=== PATIENT | male | born 1960 | race Caucasian/White ===

== ENCOUNTER 2017-04-16 10:16 | Emergency (ER) | payer MEDICAID ==
[2017-04-16] MEDS ORDERED: HYDROmorphONE/DILAUDID 1 MG/ML SYR IVP ONE (10:50)
[2017-04-16 11:01] LABS: % IMMATURE GRANULYOCYTES 0.3 % (0.0-1.1); ABSOLUTE IMMATURE GRANULOCYTES 0.03 10^3/uL (0.00-0.10); ADD DIFF? NO; ADD MORPH? NO; ADD SCAN? NO; ATYPICAL LYMPHOCYTE FLAG 10 (0-99); FRAGMENT RBC FLAG 0 (0-99); HEMOGLOBIN 14.6 g/dL (13.7-17.5); LEFT SHIFT FLG 0 (0-99); LIPEMIA HEMOLYSIS FLAG 90 (0-99); MEAN CELL HEMOGLOBIN 29.7 pg (27.9-34.1); MEAN CELL VOLUME 87.6 fL (81.5-99.8); MEAN PLATELET VOLUME 9.7 fL (8.7-11.7); PLATELET CLUMPS FLAG 0 (0-99); PLATELET COUNT 323 10^3/uL (150-400); RED BLOOD CELL COUNT 4.91 10^6/uL (4.40-6.38)
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
[2017-04-16 11:11] LABS: ANION GAP 10 mEq/L (8-16); CALCIUM 9.9 mg/dL (8.5-10.4); CARBON DIOXIDE 25 mEq/l (22-31); CHLORIDE 105 mEq/L (97-110); CREATININE 0.8 mg/dL (0.7-1.3); GLOMERULAR FILTRATION RATE > 60; GLUCOSE 138 mg/dL (70-100); POTASSIUM 3.7 mEq/L (3.5-5.2); SODIUM 140 mEq/L (134-144)
[2017-04-16] MEDS ORDERED: IOPAMIDOL (ISOVUE-300) 100 ML BTL ONE (11:22)
[2017-04-16] MEDS ORDERED: KETOROLAC 30 MG/1 ML SDV IVP ONE (13:15)
[2017-04-16 14:17] VITALS: BP 146/84; PULSE 78; RESP 18; TEMP 97.5; O2SAT 98
== END 2017-04-16 14:15 | disposition home or self-care (01) ==
DX: S22.32XA Fracture of one rib, left side, initial encounter for closed fracture (principal); S16.1XXA Strain of muscle, fascia and tendon at neck level, initial encounter; S70.212A Abrasion, left hip, initial encounter; S30.811A Abrasion of abdominal wall, initial encounter; V13.4XXA Pedal cycle driver injured in collision with car, pick-up truck or van in traffic accident, initial encounter; Y92.410 Unspecified street and highway as the place of occurrence of the external cause; Y99.8 Other external cause status; Y93.55 Activity, bike riding
CPT/HCPCS: 96374; J1170; J1885; Q9967

== ENCOUNTER 2017-09-21 15:44 | Emergency (ER) | payer MEDICAID ==
[2017-09-21 15:51] VITALS: RESP 18
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
[2017-09-21 17:21] VITALS: BP 154/87; PULSE 91; TEMP 97.3; O2SAT 95
== END 2017-09-21 17:21 | disposition home or self-care (01) ==
DX: S83.92XA Sprain of unspecified site of left knee, initial encounter (principal); F17.200 Nicotine dependence, unspecified, uncomplicated; X50.9XXA Other and unspecified overexertion or strenuous movements or postures, initial encounter; Y92.89 Other specified places as the place of occurrence of the external cause; Y93.89 Activity, other specified

== ENCOUNTER 2018-05-09 14:24 | Emergency (ER) | payer MEDICAID ==
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
[2018-05-09 16:07] VITALS: BP 158/75
== END 2018-05-09 16:07 ==
LOC: EDUNIT#
DX: G40.89 Other seizures (principal); Z86.69 Personal history of other diseases of the nervous system and sense organs; F17.200 Nicotine dependence, unspecified, uncomplicated

== ENCOUNTER 2018-08-23 03:18 | Emergency (ER) | payer MEDICAID ==
[2018-08-23] MEDS ORDERED: PROPARACAINE/FLUORESCEIN SOD 5 ML OPHT.BTL OP ONE (03:37)
--- NOTE | 2018-08-23 03:46 | EDPHY ---
H & P Stated Complaint: right arm numbness and right eye vision change Time Seen by Provider: 08/23/18 03:24 HPI/ROS: HPI The patient presents with right arm pain, numbness and tingling, mild confusion and trouble with his speech. The patient noticed incidentally yesterday that he was having pain throughout his right arm when he was lifting up a bag of trash. The pain is diffuse, achy in nature, worse with any movement in his shoulder or elbow. He does have some pain in his right neck as well. He noticed numbness and tingling of his arm starting yesterday and continuing through today. He has not noticed any gloria weakness. He says he feels more confused and foggy than usual. He thinks that his speech is not right though cannot describe exactly what this means. He also complaints of blurry vision of his right eye which she describes is looking through a film. He endorses methamphetamine use. He says he does have a history of a TIA many years ago though we do not have record of this. He says he is supposed to be on a baby aspirin but does not take it. REVIEW OF SYSTEMS 10 systems were reviewed and negative with the exception of the elements mentioned in the history of present illness. PMHx: History of COPD Soc Hx: Currently employed doing maintenance and security, methamphetamine use PHYSICAL General Appearance: Alert, no distress Eyes: Pupils equal and round no pallor or injection EYE EXAM Visual Acuity: noted from Nurse's notes. Pupils: equal round and reactive to light EOMI Skin: no proptosis, no periorbital erythema or swelling, no vesicles Conjunctivae: Diffusely injected, no discharge Cornea: exam with fluoroscein shows no uptake ENT, Mouth: Mucous membranes moist Respiratory: There are no retractions, lungs are clear to auscultation Cardiovascular: Regular rate and rhythm Gastrointestinal: Abdomen is soft and non-tender, no masses, bowel sounds normal Neurological: Alert and oriented x3, cranial nerves 2-12 intact, strength is 5/ 5 in the upper extremities with no pronator drift, normal finger to nose testing Skin: Warm and dry, no rashes Musculoskeletal: Neck is supple non tender Extremities: symmetrical, full range of motion Psychiatric: Patient is oriented X 3, there is no agitation Source: Patient Exam Limitations: No limitations - Personal History Current Tetanus/Diphtheria Vaccine: Yes Current Tetanus Diphtheria and Acellular Pertussis (TDAP): Yes - Medical/Surgical History Hx Asthma: No Hx Chronic Respiratory Disease: Yes Hx Diabetes: No Hx Cardiac Disease: No Hx Renal Disease: No Hx Cirrhosis: No Hx Alcoholism: No Hx HIV/AIDS: No Hx Splenectomy or Spleen Trauma: No Other PMH: fx back, COPD - Social History Smoking Status: Current every day smoker Constitutional: Initial Vital Signs Temperature (C) 36.5 C 08/23/18 03:20 Heart Rate 101 H 08/23/18 03:20 Respiratory Rate 16 08/23/18 03:20 Blood Pressure 169/92 H 08/23/18 03:20 O2 Sat (%) 94 08/23/18 03:20 O2 Delivery Mode Room Air Allergies/Adverse Reactions: Penicillins Allergy (Verified 08/23/18 03:23) Home Medications: Medication Instructions Recorded Klonopin 08/23/18 Medical Decision Making - Diagnostics Imaging Results: CT head is unremarkable performed without contrast discussed with the radiologist customer response representative. Imaging: Discussed imaging studies w/ on call Radiologist, I viewed and interpreted images myself Differential Diagnosis: 58-year-old man with COPD presents with right arm pain and paresthesias, also blurriness of his right eye and some confusion. Here in the emergency department, he is slightly hypertensive. He has a normal neurologic exam. He has an injected right cornea. Given these neurologic symptoms, I will perform CT scan of his head. Patient says he has remote history of TIA and is supposed to be taking a baby aspirin but is non compliant with this. CT head is unremarkable. Patient continues to have normal neurologic exam. He was observed for several hours with no progression of his symptoms. He appears to have a conjunctivitis of his right eye which is likely viral given unilateral and minimal discharge. He believes that his symptoms are related to benzodiazepine withdrawal. His psychiatrist stopped his Klonopin which she had been taking for about 1 year about 1 week ago and he has noticed mild symptoms since then. He thinks he developed some right shoulder pain and then got worried and developed other symptoms. This is certainly plausible. He felt well enough to go home and I really doubt TIA at this time. I discussed treatment for his conjunctivitis. - Data Points Laboratory Results: Laboratory Results 08/23/18 03:40 08/23/18 03:40 Medications Given: Discontinued Medications Ibuprofen (Motrin) 400 mg PO EDNOW ONE Stop: 08/23/18 04:23 Last Admin: 08/23/18 04:25 Dose: 400 mg Proparacaine HCl/Fluorescein Sodium (Flucaine) 2 drops OP EDNOW ONE Stop: 08/23/18 03:38 Last Admin: 08/23/18 04:05 Dose: 2 drops Point of Care Test Results: Chemistry 08/23/18 04:29 POC Troponin I 0.00 ng/mL ng/mL (0.00-0.08) Departure - Departure Disposition: Home, Routine, Self-Care Clinical Impression: Arm paresthesia, right, Conjunctivitis Condition: Good Instructions: Conjunctivitis (ED) Additional Instructions: Please follow-up with Dr. Mccarty in the next few days if you're not feeling better. Referrals: Gloria Mccarty MD [Non Staff Provider (MD)] - As per Instructions
[2018-08-23 03:50] LABS: PLATELET COUNT 277 10^3/uL (150-400)
[2018-08-23 04:01] LABS: CREATINE KINASE 204 IU/L (0-224)
[2018-08-23] MEDS ORDERED: IBUPROFEN 200 MG TAB PO ONE (04:22)
[2018-08-23 05:08] VITALS: BP 153/92
--- NOTE | 2018-08-23 06:32 | CPEKG ---
Test Reason : OPEN Blood Pressure : / mmHG Vent. Rate : 089 BPM Atrial Rate : 089 BPM P-R Int : 147 ms QRS Dur : 102 ms QT Int : 362 ms P-R-T Axes : 072 045 047 degrees QTc Int : 441 ms Sinus rhythm Confirmed by Mercedes Parmar ([id number]) on 08/23/2018 6:31:53 AM Referred By: Confirmed By:Mercedes Parmar
== END 2018-08-23 06:04 | disposition home or self-care (01) ==
DX: R20.2 Paresthesia of skin (principal); M79.601 Pain in right arm; H10.9 Unspecified conjunctivitis; J44.9 Chronic obstructive pulmonary disease, unspecified; F17.200 Nicotine dependence, unspecified, uncomplicated
CPT/HCPCS: 84484-ER

== ENCOUNTER 2018-09-17 06:27 | Emergency (ER) | payer MEDICAID ==
--- NOTE | 2018-09-17 06:46 | EDPHY ---
H & P Stated Complaint: R sided weakness/arm/neck/chest pain x 5-6 hours. Source: Patient Exam Limitations: Intoxication - Personal History Current Tetanus Diphtheria and Acellular Pertussis (TDAP): Yes - Medical/Surgical History Hx Asthma: No Hx Chronic Respiratory Disease: Yes Hx Diabetes: No Hx Cardiac Disease: Yes Hx Renal Disease: No Hx Cirrhosis: No Hx Alcoholism: No Hx HIV/AIDS: No Hx Splenectomy or Spleen Trauma: No Other PMH: fx back, COPD, anxiety, TIA, HTN. - Family History Significant Family History: No pertinent family hx - Social History Smoking Status: Current every day smoker Alcohol Use: Heavy Drug Use: Other (methamphetamine) Time Seen by Provider: 09/17/18 06:37 HPI/ROS: 58 yo M presents c/o right sided shoulder pain and right arm "not working the way it usually does" that began 6 hours ago. Pt with hx of similar on 08/23/18 seen at [facility], and discharged with paresthesias. Review of systems as per hpi General no fever no chills no weakness HEENT no eye pain no eye discharge. No eye redness, no sore throat Respiratory pos cough, no shortness of breath Cardiac no chest pain, no peripheral edema GI no abdominal pain, no diarrhea, no constipation, no nausea, no vomiting no flank pain, no hematuria, no dysuria Musculoskeletal no myalgias, pos joint pain Heme no easy bruising, no easy bleeding Endo no polyuria, no polydipsia Skin no rashes, no pruritus Neuro no syncope, no dizziness, no headaches, pos right arm paresthesias Psych is no suicidal ideation, no homicidal ideation (Francie Roa) - Physical Exam Exam: 58 yo M alert and oriented smells of alcohol at,nc eomi, prrl neck supple, no jvd lungs cta bilat heart rapid rr (Francie Roa) Constitutional: Initial Vital Signs Temperature (C) 36.8 C 09/17/18 06:38 Heart Rate 111 H 09/17/18 06:38 Respiratory Rate 21 H 09/17/18 06:38 Blood Pressure 147/94 H 09/17/18 06:38 O2 Sat (%) 88 L 09/17/18 06:38 O2 Delivery Mode Nasal Cannula O2 (L/minute) 2 Allergies/Adverse Reactions: Penicillins Allergy (Verified 09/17/18 06:38) Home Medications: Medication Instructions Recorded Klonopin 08/23/18 Methocarbamol [Robaxin 750 mg (*)] 750 - 1,500 mg PO QID PRN #30 tab 09/17/18 methylPREDNISolone [Medrol Dose 1 each PO AD #1 ea 09/17/18 Gilberto] traMADol [Ultram 50 mg (*)] 50 - 100 mg PO Q6 PRN #20 tab 09/17/18 Medical Decision Making - Diagnostics Imaging Results: Imaging Impressions Chest X-Ray 09/17/18 07:20 Impression: 1. Elevated right hemidiaphragm of unknown chronicity. 2. Possible left basilar infiltrate. 3. Recommend a routine PA and lateral chest when the patient is clinically able. If unable, chest CT may be useful. Neck CTA 09/17/18 07:22 Impression: Normal CT angiogram of the brain. 2. CT Angiography of the Neck (With Contrast) Clinical Indications: Right arm weakness and paresthesias, stroke alert Technique: During IV administration of 85 mL of Isovue-370 intravenously, helical multidetector data acquisition was obtained from the upper thorax cephalad through the skull base. The thinly collimated data were manipulated in multiple projections on the 3D computer workstation by the radiologist. Dose reduction techniques were utilized. Findings: The common internal and external carotid arteries are widely patent. Carotid bifurcations are widely patent. There are small intramural atherosclerotic calcifications in each carotid bifurcation, neither flow- limiting based on NASCET criteria. Both vertebral arteries are widely patent. No evidence of occlusion, hemodynamically significant stenosis, dissection or ulceration. Impression: Normal. Note: All stenoses are calculated using NASCET Criteria. Final concordant results are discussed with Dr. Gilbert Frazier at 08:10 AM. General information for patients regarding this examination can be found at [email or web address]. If you have questions or comments about this report, please contact me at [phone](hospital) or [phone] (cell). ED Course/Re-evaluation: pt seen and evaluation begun for right shoulder pain with right arm paresthesias , pt states this began 6 hours ago ekg with sinus tachycardia 110, early repol NIH stroke scale 3 Discussed with [facility], since he is out of the lytic window, they recommend CTA head and neck labs drawn dimer neg troponin nml creat 1.2 glucose 88 iv one liter normal saline ordered Imp pt with right arm paresthesias, right shoulder , right sided neck pain , concerning for a cervical radiculopathy still considering the possibility of CVA Pt care turned over at shift change to Dr Frazier pending ct head and neck, lab results and final disposition. (Francie Roa) I spoke with Dr. Palacios regarding the patient's CT a neck-normal CT head also normal. Patient is noted to have significant DJD on cervical CT is from 2017 and today. On repeat exam patient has decreased light touch sensation to the distribution of the ulnar aspect of his hand corresponding to the CA region. He reports diffuse weakness in his arms I seems to flex without much difficulty. He has right lateral neck tenderness extends into the trapezius. Considering otherwise negative workup, findings of degenerative changes on neck imaging and current clinical findings on exam, I suspect this patient has a C8 radiculopathy and maybe some radiculopathy 2 adjacent levels in the neck manifesting as neck/shoulder pain with associated changes in arm sensation and strength. Suggested a course of Solu-Medrol, analgesics, muscle relaxants and follow up with Neurosurgery. (Gilbert Frazier) Differential Diagnosis: differential diagnosis considered but not limited to: CVA, subdural, epidural, cervical radiculopathy, right shoulder strain, cervical strain, pneumonia, alcohol intoxication (Francie Roa) - Data Points Laboratory Results: 09/17/18 09/17/18 09/17/18 07:08 06:53 06:53 POC Hgb 17.3 gm/dL gm/dL (13.7-17.5) POC Hct 51 % % (40-51) POC Sodium 143 mEq/L mEq/L (135-145) POC Potassium 3.6 mEq/L mEq/L (3.3-5.0) POC Chloride 105 mEq/L mEq/L (97-110) POC BUN 15 mg/dL mg/dL (7-23) POC Creatinine 1.2 mg/dL mg/dL (0.7-1.3) POC Glucose 109 mg/dL H mg/dL 88 mg/dL mg/dL (70-100) (70-100) POC Troponin I 0.01 ng/mL ng/mL (0.00-0.08) Ethyl Alcohol 09/17/18 06:44 POC Hgb POC Hct POC Sodium POC Potassium POC Chloride POC BUN POC Creatinine POC Glucose POC Troponin I Ethyl Alcohol 41 mg/dL H mg/dL (0-10) Point of Care Test Results: CBC CBC Collection Date 09/17/18 CBC Collection Time 06:44 WBC 10.6 RBC 5.6 HGB 17.6 HCT 50.1 PLT 323 Neut # 6 Neut 56.9 LYMPH # 4 LYMPH 37.8 Other WBC # 0.6 Other WBC 5.3 MCV 89.5 Chemistry 09/17/18 09/17/18 09/17/18 07:08 06:53 06:53 POC Sodium 143 mEq/L mEq/L (135-145) POC Potassium 3.6 mEq/L mEq/L (3.3-5.0) POC Chloride 105 mEq/L mEq/L (97-110) POC BUN 15 mg/dL mg/dL (7-23) POC Creatinine 1.2 mg/dL mg/dL (0.7-1.3) POC Glucose 109 mg/dL H mg/dL 88 mg/dL mg/dL (70-100) (70-100) POC Troponin I 0.01 ng/mL ng/mL (0.00-0.08) ISTAT H&H 09/17/18 07:08 POC Hgb 17.3 gm/dL gm/dL (13.7-17.5) POC Hct 51 % % (40-51) Comprehensive Metabolic Panel CMP Collection Date 09/17/18 CMP Collection Time 06:44 Sodium 142 Potassium 3.7 Chloride 108 TCO2 25 Glucose 110 BUN 13 Creatinine 1.0 Calcium 9.2 Total Protein 6.9 Albumin 3.5 Alkaline Phosphatase 105 ALT 59 AST 50 Total Bilirubin 0.6 Basic Metabolic Panel Chloride 108 Creatinine 1.0 D-Dimer D-Dimer Collection Date 09/17/18 D-Dimer Collection Time 06:44 D-Dimer (ng/ml) 317 Departure - Departure Disposition: Home, Routine, Self-Care Clinical Impression: Cervical radiculopathy at C8 Condition: Good Instructions: Cervical Radiculopathy (ED) Additional Instructions: Diagnosis: Cervical radiculopathy Plan: Take the Medrol steroid Dosepak as prescribed. Start that today. Do not take nonsteroidal anti-inflammatory such as ibuprofen while your on the Medrol Dosepak. However when you finish the Medrol Dosepak, he can start ibuprofen-600 mg per 6 hr as needed for pain Tylenol in addition for pain as needed Methocarbamol muscle relaxant in addition as needed Tramadol in addition if needed for pain that prevents sleep. No driving, alcohol or work on tramadol. Call Dr. Singh-neurosurgeon drainage follow-up appointment for recheck In addition, call Dr. Ferrari to establish primary care physician Referrals: NONE *PRIMARY CARE P,. [Primary Care Provider] - As per Instructions Eddie Singh MD [Medical Doctor] - As per Instructions Mignon Buenrostro MD [Medical Doctor] - As per Instructions
[2018-09-17] MEDS ORDERED: NS 1,000 ML IV ONE (07:14)
[2018-09-17] MEDS ORDERED: IOPAMIDOL (ISOVUE 370) 100 ML BTL IV ONE (07:32)
[2018-09-17] MEDS ORDERED: KETOROLAC 30 MG/1 ML SDV IVP ONE (08:25)
[2018-09-17 09:17] VITALS: BP 154/89
[2018-09-17 09:31] LABS: INR 0.92 (0.83-1.16); PROTIME(PATIENT) 12.6 SEC (12.0-15.0)
--- NOTE | 2018-09-21 18:37 | CPEKG ---
Test Reason : OPEN Blood Pressure : / mmHG Vent. Rate : 110 BPM Atrial Rate : 110 BPM P-R Int : 137 ms QRS Dur : 099 ms QT Int : 337 ms P-R-T Axes : 069 012 059 degrees QTc Int : 456 ms Sinus tachycardia Probable left atrial enlargement ST elevation, consider anterior injury Confirmed by Francie Roa ([id number]) on 09/21/2018 6:36:25 PM Referred By: Confirmed By:Francie Roa
== END 2018-09-17 09:25 | disposition home or self-care (01) ==
LOC: CED 06:27
DX: M54.12 Radiculopathy, cervical region (principal); F17.200 Nicotine dependence, unspecified, uncomplicated
CPT/HCPCS: 70450-PO; 70496-PO; 70498-PO; 71045-PO; 82435-PO; 82565-PO; 82947-PO; 84132-PO; 84295-PO; 84484-ER; 84520-PO; 85014-ER; 96361-ER; 96374-ER; G0480; J1885; Q9967

== ENCOUNTER 2018-10-19 21:45 | Emergency (ER) | payer MEDICAID ==
[2018-10-19 21:52] VITALS: BP 171/125
--- NOTE | 2018-10-19 21:56 | EDPHY ---
H & P Stated Complaint: Med Clear Time Seen by Provider: 10/19/18 21:55 HPI/ROS: HPI CHIEF COMPLAINT: Medical clearance for [facility]. Patient complains of right hand pain. HISTORY OF PRESENT ILLNESS: 58-year-old male, history of anxiety and PTSD, homeless, here in the emergency room under arrest, going to [facility] and is being medically cleared for [facility]. Patient presents emergency room stating that he has right hand pain. He fell yesterday and injured his right hand. Additionally he has some erythematous lesions on his arms he is concerned may be MRSA. He is here for medical clearance for [facility]. Denies any other complaints. Past Medical History: PTSD and anxiety Past Surgical History: No recent surgery Social History: Homeless, polysubstance abuse. Denies IV drug use. Family History: Noncontributory ROS REVIEW OF SYSTEMS: 10 Systems were reviewed and negative with the exception of the elements mentioned in the history of present illness. Exam Constitutional triage nursing summary reviewed, vital signs reviewed, awake/ alert. Eyes normal conjunctivae and sclera, EOMI, PERRLA. HENT normal inspection, atraumatic, moist mucus membranes, no epistaxis, neck supple/ no meningismus, no raccoon eyes. Respiratory clear to auscultation bilaterally, normal breath sounds, no respiratory distress, no wheezing. Cardiovascular rate normal, regular rhythm, no murmur, no edema, distal pulses normal. Gastrointestinal soft, non-tender, no rebound, no guarding, normal bowel sounds, no distension, no pulsatile mass. Genitourinary no CVA tenderness. Musculoskeletal right hand: Neurovascularly intact mild tender palpation over the base of the thumb dorsal aspect. Good cap refill, full function, neurovascular intact, no compartment syndrome, no obvious signs of trauma. Normal movement of his thumb and hand. Good opposition of the thumb and pinky. no midline vertebral tenderness, full range of motion, no calf swelling, no tenderness of extremities, no meningismus, good pulses, neurovascularly intact. Skin to erythematous lesions 1 on the right arm, 1 on the left arm, no fluctuance. Indurated areas. The area is approximately 2 cm x 2 cm on both arms. On the right arm is located on the bicep region. On left arm it is on the triceps region. He denies he is being IV drug use sites. No fluctuance. Neurologic awake, alert and oriented x 3, AAOx3, moves all 4 extremities equally, motor intact, sensory intact, CN II-XII intact, normal cerebellar, normal vision, normal speech. Psychiatric normal mood/affect. Heme/Lymph/Immune no lymphadenopathy. Differential Diagnosis: Includes but is not limited to in a particular order right hand contusion, right hand sprain, soft tissue injury, MRSA infection, early abscess, cellulitis Medical Decision Making: Plan for this patient x-ray right hand, additionally started on Bactrim for his redness on both arms. Re-evaluation: Plan for this patient start on Bactrim Recommend warm compresses Antibiotics for [facility]. X-ray right hand. At the base of the thumb on the right hand x-ray shows a fracture. Patient be splinted in a thumb spica splint. Patient need to follow up with Hand surgery. I discussed this with the patient. Bactrim prescription provided. 1st dose given in emergency room. Patient placed in a Velcro thumb spica splint for the base of thumb fracture. He understands he needs to follow up with Hand surgery. He is medically cleared for [facility]. Source: Patient - Personal History Current Tetanus/Diphtheria Vaccine: Unsure Current Tetanus Diphtheria and Acellular Pertussis (TDAP): Unsure - Medical/Surgical History Hx Asthma: No Hx Chronic Respiratory Disease: Yes Hx Diabetes: No Hx Cardiac Disease: Yes Hx Renal Disease: No Hx Cirrhosis: No Hx Alcoholism: No Hx HIV/AIDS: No Hx Splenectomy or Spleen Trauma: No Other PMH: fx back, COPD, anxiety, TIA, HTN, stroke - Social History Smoking Status: Former smoker Constitutional: Initial Vital Signs Temperature (C) 36.5 C 10/19/18 21:48 Heart Rate 94 10/19/18 21:48 Blood Pressure 171/125 H 10/19/18 21:48 O2 Sat (%) 94 10/19/18 21:48 O2 Delivery Mode Room Air Allergies/Adverse Reactions: Penicillins Allergy (Verified 09/17/18 06:38) Home Medications: Medication Instructions Recorded Klonopin 08/23/18 methylPREDNISolone [Medrol Dose 1 each PO AD #1 ea 09/17/18 Gilberto] traMADol [Ultram 50 mg (*)] 50 - 100 mg PO Q6 PRN #20 tab 09/17/18 Sulfamethox/Tmp 800/160 mg 1 tab PO BID@1000,2200 #14 tab 10/19/18 [Bactrim Ds] Medical Decision Making - Data Points Medications Given: Discontinued Medications Trimethoprim/Sulfamethoxazole (Bactrim Ds) 1 ea PO EDNOW ONE PRN Reason: Protocol Stop: 10/19/18 22:05 Last Admin: 10/19/18 22:11 Dose: 1 ea Departure - Departure Disposition: Home, Routine, Self-Care Clinical Impression: Cellulitis Qualifiers: Site of cellulitis: other site Qualified Code(s): L03.818 - Cellulitis of other sites Hand fracture, right Qualifiers: Encounter type: initial encounter Fracture type: closed Qualified Code(s): S62.91XA - Unspecified fracture of right wrist and hand, initial encounter for closed fracture Condition: Good Instructions: Hand Fracture (ED), Cellulitis (ED) Additional Instructions: 1. Antibiotics as prescribed. 2. Warm compresses 2 to 3 times a day. 3. Return emergency room if worsening symptoms includes worsening pain, fever, swelling, not doing well. 4. medically cleared for [facility] 5. Follow up with Orthopaedics about your hand. Referrals: NONE *PRIMARY CARE P,. [Primary Care Provider] - As per Instructions David Jiménez MD [Medical Doctor] - As per Instructions Prescriptions: Sulfamethox/Tmp 800/160 mg [Bactrim Ds] 1 tab PO BID@1000,2200 #14 tab
[2018-10-19] MEDS ORDERED: SULFAMETHOX/TMP 800/160 MG 1 TAB PO ONE (22:04)
== END 2018-10-19 23:02 | disposition home or self-care (01) ==
DX: L03.818 Cellulitis of other sites (principal); S62.231A Other displaced fracture of base of first metacarpal bone, right hand, initial encounter for closed fracture; I10 Essential (primary) hypertension; F43.10 Post-traumatic stress disorder, unspecified; W19.XXXA Unspecified fall, initial encounter; Z59.0 Homelessness
CPT/HCPCS: L3807

== ENCOUNTER → 2019-01-13 | Outpatient (CLI) | payer OTHER | LOC: FIMAGING 09:17 | PROVIDERS: ATTEND Orthopaedic Surgery Hand Surgery | DX: S62.211A Bennett's fracture, right hand, initial encounter for closed fracture (principal) ==

== ENCOUNTER → 2019-01-21 | Outpatient (CLI) | payer OTHER | LOC: FIMAGING 07:49 | DX: Z13.828 Encounter for screening for other musculoskeletal disorder (principal) ==